=== PATIENT | female | born 1995 ===

== ENCOUNTER 2023-01-19 22:39 | Emergency (ER) | payer OTHER ==
[2023-01-19 22:47] VITALS: PULSE 82; RESP 16; TEMP 99.1; BMI 29.2
[2023-01-19] MEDS ORDERED: KETOROLAC TROMETHAMINE 30 MG/1 ML VIAL IVPUSH ONE (23:02)
[2023-01-19] MEDS ORDERED: SODIUM CHLORIDE 1,000 ML IV ONE (23:02)
[2023-01-19] MEDS ORDERED: methylPREDNISolone NA SUCC 125 MG/2 ML VIAL IVPUSH ONE (23:03)
[2023-01-19] MEDS ORDERED: methylPREDNISolone NA SUCC 125 MG/2 ML VIAL ONE (23:16)
[2023-01-19] MEDS ORDERED: KETOROLAC TROMETHAMINE 30 MG/1 ML VIAL ONE (23:16)
[2023-01-19 23:21] LABS: HEMATOCRIT 40.9 % (32.4-45.2); HEMOGLOBIN 13.4 G/dL (10.7-15.3); MCHC 32.8 g/dl (32.0-36.0); MEAN CELL VOLUME 88.6 fl (80-96); MEAN PLT VOLUME 8.5 fl (7.5-11.1); PLATELET COUNT 299.1 10^3/uL (134-434); RBC 4.62 10^6/uL (3.60-5.2); RDW 14.5 % (11.6-15.6); WHITE BLOOD COUNT 14.8 10^3/uL (4.0-10.8)
[2023-01-19 23:38] LABS: ALBUMIN 4.4 g/dl (3.4-5.0); BILIRUBIN,TOTAL 0.4 mg/dl (0.2-1); BLOOD UREA NITROGEN 5.9 mg/dl (7-18); CALCIUM 9.7 mg/dl (8.5-10.1); CREATININE 0.5 mg/dl (0.6-1.3); SGOT/AST 33.2 U/L (15-37); SGPT/ALT 37.9 U/L (7-52); TOT PROT 7.6 g/dl (6.4-8.2)
[2023-01-19 23:39] LABS: POTASSIUM 4.7 mmol/L (3.5-5.1)
[2023-01-19 23:54] VITALS: BP 124/81
== END 2023-01-20 00:36 | disposition home or self-care (01) ==
LOC: FER 22:39
PROC: 3E033NZ Introduction of Analgesics, Hypnotics, Sedatives into Peripheral Vein, Percutaneous Approach (ICD-10-PCS; principal; 2023-01-19)
PROC: 3E033GC Introduction of Other Therapeutic Substance into Peripheral Vein, Percutaneous Approach (ICD-10-PCS; 2023-01-19)
PROC: 3E0337Z Introduction of Electrolytic and Water Balance Substance into Peripheral Vein, Percutaneous Approach (ICD-10-PCS; 2023-01-19)
DX: J02.9 Acute pharyngitis, unspecified (principal); Z20.822 Contact with and (suspected) exposure to COVID-19
CPT/HCPCS: 36415; 80053; 85027; 87635; 99284-25